=== PATIENT | female | born 1965 | race Caucasian/White ===

== ENCOUNTER 2020-04-11 06:35 | Day surgery (SDC) | payer BC ==
[~2020-04-11] VITALS: Ht 171.4 cm; Wt 67.1 kg
[2020-04-11] MEDS ORDERED: CHOL200013 PO (07:20)
[2020-04-11] MEDS ORDERED: BACI1CAP6 PO (07:20)
[2020-04-11 07:55] VITALS: BP 131/78
[2020-04-11 08:04] LABS: BASOPHILS # (AUTO) 0.1 X10'3 (0-0.2); EOSINOPHILS # (AUTO) 0.1 X10'3 (0-0.9); EOSINOPHILS % (AUTO) 2.4 % (0-6); HEMATOCRIT 39.8 % (35.0-45.0); HEMOGLOBIN 13.5 g/dl (12.0-16.0); LYMPHOCYTES # (AUTO) 1.4 X10'3 (1.1-4.8); LYMPHOCYTES % (AUTO) 23.6 % (21-51); MEAN CORPUSCULAR HEMOGLOBIN 33.9 PG (27.0-31.0); MEAN CORPUSCULAR HGB CONC 33.8 g/dL (33.0-36.5); MEAN CORPUSCULAR VOLUME 100.4 FL (78-98); MEAN PLATELET VOLUME 7.7 FL (7.4-10.4); MONOCYTES # (AUTO) 0.6 X10'3 (0-0.9); MONOCYTES % (AUTO) 10.1 % (2-12); NEUTROPHILS # (AUTO) 3.7 X10'3 (1.8-7.7); NEUTROPHILS % (AUTO) 62.9 % (42-75); PLATELET COUNT 194 X10'3 (140-440); RED BLOOD COUNT 3.97 X10'6 (4.20-5.60); RED CELL DISTRIBUTION WIDTH 13.3 % (11.5-14.5); WHITE BLOOD COUNT 5.8 X10'3 (4.5-11.0)
[2020-04-11] MEDS ORDERED: LIDOcaine 1%/PF 5ML 10 MG/ML VIAL ONE (08:34)
[2020-04-11] MEDS ORDERED: heparin sodium, porcine/PF 100unit/ml 5ML syringe ONE (08:34)
[2020-04-11] MEDS ORDERED: midazolam 2 mg/2 ml injection ONE ×2 (08:38→09:22)
[2020-04-11] MEDS ORDERED: fentaNYL/PF 50MCG/1 ML 2ML syringe ONE ×2 (08:38→09:22)
[2020-04-11] MEDS ORDERED: normal saline 1000ml 1,000 ML IV SCH (08:55)
[2020-04-11 10:00] VITALS: BP 99/57
[2020-04-11 10:15] VITALS: BP 113/73
[2020-04-11 10:30] VITALS: BP 111/69
[2020-04-11 10:45] VITALS: BP 97/57
[2020-04-11 11:00] VITALS: BP 98/52
== END 2020-04-11 11:10 | disposition home or self-care (01) ==
LOC: SSTAY O 06:35
PROVIDERS: ATTEND Radiology Diagnostic Radiology
DX: C50.412 Malignant neoplasm of upper-outer quadrant of left female breast (principal); Z20.828 Contact with and (suspected) exposure to other viral communicable diseases; Z87.891 Personal history of nicotine dependence; Z72.89 Other problems related to lifestyle; Z79.899 Other long term (current) drug therapy; Z98.890 Other specified postprocedural states
CPT/HCPCS: 36415; 36561; 76937; 77001; 85025; 87635; 99152; 99153; C1769; C1788; C1894; C9803; J1642; J2250; J3010